=== PATIENT | male | born 1960 | race African-American/Black ===

== ENCOUNTER 2017-05-20 07:05 | Emergency (ER) | payer MEDICAID, OTHER ==
[~2017-05-20] VITALS: Ht 172.7 cm; Wt 70.0 kg
[2017-05-20 07:09] VITALS: BP 174/100
[2017-05-20] MEDS ORDERED: KETOROLAC 60MG/2ML VIAL IM ONE (07:45)
== END 2017-05-20 08:50 | disposition left against medical advice (07) ==
LOC: ER 07:32
DX: T20.15XA Burn of first degree of scalp [any part], initial encounter (principal); X12.XXXA Contact with other hot fluids, initial encounter; Y93.9 Activity, unspecified; Y92.9 Unspecified place or not applicable
CPT/HCPCS: 96372; 99283; J1885; Z7610

== ENCOUNTER 2017-07-30 13:30 | Emergency (ER) | payer MEDICAID, OTHER ==
[~2017-07-30] VITALS: Ht 177.8 cm; Wt 65.0 kg
[2017-07-30 13:40] VITALS: BP 94/59
[2017-07-30] MEDS ORDERED: SODIUM CHLORIDE 0.9% 1,000 ML IV ONE (14:12)
[2017-07-30] MEDS ORDERED: ONDANSETRON HCL 4MG/2ML VIAL IV ONE (14:15)
[2017-07-30 15:17] LABS: BASOPHILS % 0.4 % (0.0-2.0); HEMATOCRIT. 39.8 % (42.0-52.0); HEMOGLOBIN. 13.3 g/dL (14.0-18.0); LYMPHOCYTES % 22.3 % (20.0-50.0); MEAN CORPUSCULAR HEMOGLOBIN 31.7 pg (28.0-32.0); MEAN CORPUSCULAR VOLUME 95.1 fL (80.0-94.0); MEAN PLATELET VOLUME 7.1 fl (7.4-10.4); MONOCYTES % 6.7 % (2.0-8.0); NEUTROPHILS % 68.6 % (40.0-76.0); PLATELET 326 x1000/uL (130-400); RED BLOOD CELL COUNT 4.18 mill/uL (4.7-6.1); RED CELL DISTRIBUTION WIDTH 13.1 % (11.6-14.6)
[2017-07-30 15:21] LABS: PARTIAL THROMBOPLASTIN TIME 25.5 sec (23.4-31.0); PROTHROMBIN TIME 10.3 sec (9.4-11.6)
[2017-07-30 15:31] LABS: CHLORIDE 106 mEq/L (98-107); CREATINE KINASE MB FRACTION 2.1 ng/mL (0.5-3.6); TROPONIN I < 0.02 ng/mL (0.00-0.04)
[2017-07-30] MEDS ORDERED: ASPIRIN 81MG TABLET PO ONE (15:45)
== END 2017-07-30 16:03 | disposition left against medical advice (07) ==
LOC: ER 13:43 → ENRESERV 20:32 → CANRESERV 20:32 → CANBEDREQ 07-31 01:23
DX: R55 Syncope and collapse (principal); D64.9 Anemia, unspecified; F43.10 Post-traumatic stress disorder, unspecified; F17.200 Nicotine dependence, unspecified, uncomplicated; F12.10 Cannabis abuse, uncomplicated
CPT/HCPCS: 36415; 71045; 80053; 82553; 83605; 84484; 85025; 85610; 85730; 93005; 99285; J7030; Z7610

== ENCOUNTER 2018-02-09 21:37 | Emergency (ER) | payer MEDICAID ==
[~2018-02-09] VITALS: Ht 175.3 cm; Wt 66.0 kg
[2018-02-10] MEDS ORDERED: KETOROLAC 30MG/ML VIAL IM ONE (01:45)
[2018-02-10] MEDS ORDERED: HYDROCODONE/ACETAMINOPHEN 5/325MG TABLET PO ONE (02:00)
[2018-02-10 04:21] LABS: CLARITY URINE CLEAR (CLEAR); COLOR URINE YELLOW (YELLOW); KETONES URINE NEGATIVE (NEGATIVE); LEUKOCYTE ESTERASE URINE TRACE (NEGATIVE); NITRITE URINE NEGATIVE (NEGATIVE); OCCULT BLOOD URINE TRACE (NEGATIVE); PH URINE 5.5 (4.5-8.0); PROTEIN URINE NEGATIVE (NEGATIVE); SPECIFIC GRAVITY URINE 1.028 (1.005-1.030)
[2018-02-10 06:00] VITALS: BP 117/90
== END 2018-02-10 09:40 | disposition home or self-care (01) ==
LOC: ER 21:37
DX: R51 Headache (principal); F17.200 Nicotine dependence, unspecified, uncomplicated; F12.10 Cannabis abuse, uncomplicated; Y04.0XXA Assault by unarmed brawl or fight, initial encounter; Y93.89 Activity, other specified; Y92.89 Other specified places as the place of occurrence of the external cause; Y99.8 Other external cause status
CPT/HCPCS: 81003; 99283; Z7610; J1885

== ENCOUNTER 2018-09-13 04:54 | Emergency (ER) | payer MEDICAID ==
[~2018-09-13] VITALS: Ht 172.7 cm; Wt 66.7 kg
[2018-09-13 05:27] VITALS: BP 130/70
== END 2018-09-13 06:04 | disposition left against medical advice (07) ==
LOC: ER 04:54
DX: M25.512 Pain in left shoulder (principal); Z53.21 Procedure and treatment not carried out due to patient leaving prior to being seen by health care provider